=== PATIENT | female | born 1985 | race American Indian/Alaskan Native ===

== ENCOUNTER 2016-07-05 14:42 | Emergency (ER) | payer MEDICAID ==
[2016-07-05 15:28] VITALS: BP 135/77
--- NOTE | 2016-07-05 18:13 | Emergency Department Report ---
Entered by DIANA GREY, acting as scribe for ANEESH OVALLE PA. ED Fall HPI - General Chief Complaint: Fall Stated Complaint: FALL Time Seen by Provider: 07/05/16 17:00 Source: patient Mode of arrival: Ambulatory - History of Present Illness Initial Comments: 31 year old female presents to the ED for evaluation of left knee pain that began today. Patient reports she tripped over her real toy in backyard while running yesterday. She states she tripped forward then backward while attempting to maintain balance. She reports she felt twist in her left knee and landed on the ground on hands and knees. Patient states she was ambulatory with no difficulty or pain yesterday. Notes pain is worse to posterior aspect of left knee. She denies hitting her head, abdominal pain, chest pain, shortness of breath, back pain. Patient is currently and reports feeling movement today. She reports no vaginal bleeding or leaking of fluids. MD Complaint: fall -: days(s) (1 day ago (yesterday). Knee pain for 1 day (today).) Fall From: standing When Fall Occurred: 24 hours [employer] [facility] [employer] Fall Witnessed: yes, by family Place Fall Occurred: home Loss of Consciousness: none Prolonged Down Time?: no Symptoms Prior to Fall: none Location - Extremities: Left: Knee (Pain to anterior and posterior aspect.) Context: tripped/slipped Associated Symptoms: denies: headache, neck pain, numbness, weakness, chest paint, shortness of breath, abdominal pain, unable to walk, other (back pain, decreased or absent movements) - Related Data Home Medications Medication Instructions Recorded Confirmed Last Taken ALBUTEROL Inhaler [Proair] 2 puff IH QID PRN 07/24/13 08/04/13 Unknown Methyldopa [Aldomet] 500 mg PO BID 07/24/13 08/04/13 07/24/13 05:00 Vit#96/Ferrous Fum/FA 1 tab PO DAILY 07/24/13 08/04/13 08/03/13 [ Tablet] 1 Previous Rx's Medication Instructions Recorded Last Taken Type Ferrous Sulfate [Feosol 325 MG tab] 325 mg PO BID #60 tablet 08/05/13 Unknown Rx HYDROcodone/APAP 5-325 [[place] 1 each PO Q6HR PRN #30 tablet 08/05/13 Unknown Rx 5/325 mg] Ibuprofen [Motrin] 800 mg PO Q8H PRN #30 tablet 08/05/13 Unknown Rx Ypo574/Iron Fumarate/FA/Dss 1 each PO QDAY #30 tablet 08/05/13 Unknown Rx [ 19 Tablet] Acetaminophen [Acetaminophen 8 650 mg PO TID #40 tablet.er 07/05/16 Unknown Rx Hour] Allergies Allergy/AdvReac Type Severity Reaction Status Date / Time shellfish derived Allergy Anaphylaxis Verified 07/05/16 15:25 ED Review of Systems Comment: All other systems reviewed and negative Respiratory: denies: shortness of breath Cardiovascular: denies: chest pain Gastrointestinal: denies: abdominal pain Genitourinary: denies: other (decreased or absent movements) Musculoskeletal: other (left knee pain). denies: back pain (neck pain) Neurological: denies: headache, weakness, numbness, paresthesias, other (LOC) ED Past Medical Hx - Past Medical History Hx Hypertension: Yes (WITH ) Hx Heart Attack/AMI: No Hx Congestive Heart Failure: No Hx Diabetes: No Hx Deep Vein Thrombosis: No Hx Pulmonary Embolism: No Hx Liver Disease: No Hx Renal Disease: No Hx Sickle Cell Disease: No Hx Headaches / Migraines: Yes (occas) Hx Seizures: No Hx Asthma: Yes (last attack 5 yrs ago) Hx COPD: No Hx Tuberculosis: No Hx HIV: No - Surgical History Additional Surgical History: X 2 - Social History Smoking Status: Former Smoker Substance Use Type: None - Medications Home Medications: Home Medications Medication Instructions Recorded Confirmed Last Taken Type ALBUTEROL Inhaler [Proair] 2 puff IH QID PRN 07/24/13 08/04/13 Unknown History Methyldopa [Aldomet] 500 mg PO BID 07/24/13 08/04/13 07/24/13 05:00 History Vit#96/Ferrous Fum/FA 1 tab PO DAILY 07/24/13 08/04/13 08/03/13 History [ Tablet] 1 Ferrous Sulfate [Feosol 325 MG tab] 325 mg PO BID #60 tablet 08/05/13 Unknown Rx HYDROcodone/APAP 5-325 [[place] 1 each PO Q6HR PRN #30 tablet 08/05/13 Unknown Rx 5/325 mg] Ibuprofen [Motrin] 800 mg PO Q8H PRN #30 tablet 08/05/13 Unknown Rx Rbj675/Iron Fumarate/FA/Dss 1 each PO QDAY #30 tablet 08/05/13 Unknown Rx [ 19 Tablet] Acetaminophen [Acetaminophen 8 650 mg PO TID #40 tablet.er 07/05/16 Unknown Rx Hour] ED Physical Exam - General Limitations: No Limitations - Other Other exam information: GENERAL: Patient is alert and oriented x 3. No apparent distress, atraumatic. HEAD: Head is normocephalic and atraumatic. EYES: Extraocular movements are intact. Pupils are equal, round, and reactive to light and accommodation. NECK: Supple, full range of motion. No lymphadenopathy or thyromegaly. No midline vertebral tenderness. LUNGS: Symmetrical with respiration. No wheezing, rales or crackles, CTAB. HEART: Regular rate and rhythm with normal S1/S2 present. No murmurs, rubs, or gallops. ABDOMEN: Nontender to palpation on all quadrants. BACK: No paraspinal or midline vertebral tenderness. No CVA tenderness. EXTREMITIES/MUSCULOSKELETAL: No cyanosis, clubbing, rash, lesions or edema. Full range of motion with pain to left knee. No increased warmth to left knee. Left patella intact with no signs of deformity or shifting. UE/LE Pulses 2+ bilaterally. LE and UE 5+ strength bilaterally. SKIN: Warm and dry. No lesions, ulceration or induration present NEUROLOGIC: No focal deficit., Cranial nerves II - XII are grossly intact. No loss of sensation. No facial droop. PSYCHIATRIC: Mood is congruent with affect. ED Course Vital Signs 07/05/16 15:20 Temperature 98.3 F Pulse Rate 84 Respiratory 17 Rate Blood Pressure 135/77 O2 Sat by Pulse 100 Oximetry ED Medical Decision Making - Medical Decision Making 31-year-old female swelling always gestation presents for knee pain status post fall. Discussed the patient and take Tylenol as needed for pain. Patient is a alert and oriented 3 in no acute distress no wrist or distress. Discussed the patient follow up with STERILIZATION TECHNICIAN doctor. Discussed with patient at any time if she experiences vaginal bleeding or any complications of to return to the nearest ED. ED Disposition Clinical Impression: Knee pain, left Qualifiers: Chronicity: acute Qualified Code(s): M25.562 - Pain in left knee Fall Qualifiers: Encounter type: initial encounter Qualified Code(s): W19.XXXA - Unspecified fall, initial encounter Disposition: DISCHARGED TO HOME OR SELFCARE Is pt being admited?: No Does the pt Need Aspirin: No Condition: Stable Instructions: Arthralgia (ED) Additional Instructions: Elevate your legs. Rest your legs. Take Tylenol as discussed. Follow-up with the STERILIZATION TECHNICIAN. Prescriptions: Acetaminophen [Acetaminophen 8 Hour] 650 mg PO TID #40 tablet.er Referrals: PRIMARY CARE,MD [Primary Care Provider] - 3-5 Days Forms: Work/School Release Form(ED) Time of Disposition: 17:37 This documentation as recorded by the MATILDA panchal REBEKAH,accurately reflects the service I personally performed and the decisions made by ,ANEESH OVALLE PA.
== END 2016-07-05 17:55 | disposition home or self-care (01) ==
LOC: ED 14:42
DX: M25.562 Pain in left knee (principal); J45.909 Unspecified asthma, uncomplicated; Z91.013 Allergy to seafood; Z87.891 Personal history of nicotine dependence; W19.XXXA Unspecified fall, initial encounter; Y93.89 Activity, other specified; Y99.9 Unspecified external cause status; Y92.009 Unspecified place in unspecified non-institutional (private) residence as the place of occurrence of the external cause
CPT/HCPCS: 99282

== ENCOUNTER 2017-02-21 16:12 | Emergency (ER) | payer MEDICAID ==
[2017-02-21 17:14] VITALS: BP 138/76
[2017-02-21 18:02] LABS: Basophils % (Auto) 0.7 % (0.0-1.8); Eosinophils % (Auto) 3.6 % (0.0-4.3); Hematocrit 36.2 % (30.3-42.9); Hemoglobin 11.5 gm/dl (10.1-14.3); Mean Corpuscular HGB Conc 32 % (30-34); Mean Corpuscular Volume 80 fl (79-97); Platelet Count 299 K/mm3 (140-440); Red Blood Count 4.53 M/mm3 (3.65-5.03); Red Cell Distribution Width 17.7 % (13.2-15.2); White Blood Count 6.9 K/mm3 (4.5-11.0)
[2017-02-21 18:04] LABS: Mean Corpuscular Hemoglobin 25 pg (28-32)
[2017-02-21 18:27] LABS: Alanine Aminotransferase 14 units/L (7-56); Albumin 3.7 g/dL (3.9-5); Albumin/Globulin Ratio 1.3 %; Alkaline Phosphatase 73 units/L (35-129); Anion Gap 18 mmol/L; BUN/Creatinine Ratio 10; Bilirubin,Total < 0.20 mg/dL (0.1-1.2); Blood Urea Nitrogen 7 mg/dL (7-17); Calcium 9.1 mg/dL (8.4-10.2); Carbon Dioxide 24 mmol/L (22-30); Chloride 103.3 mmol/L (98-107); Glucose 79 mg/dL (65-100); Lipase 20 units/L (13-60); Sodium 141 mmol/L (137-145); Total Protein 6.6 g/dL (6.3-8.2)
[2017-02-22 00:33] LABS: Bilirubin,Urine Negative (Negative); Blood,Urine Negative (Negative); Ketones,Urine Negative (Negative); Leukocyte Esterase,Urine Negative (Negative); Nitrite,Urine Negative (Negative); Protein,Urine <15 mg/dL mg/dL (Negative); Urobilinogen,Urine < 2.0 mg/dL (<2.0)
[2017-02-22 00:42] LABS: Bacteria,Urine 2+ /HPF (Negative)
== END 2017-02-21 23:39 | disposition left against medical advice (07) ==
LOC: ED 16:12
DX: R10.9 Unspecified abdominal pain (principal); Z53.21 Procedure and treatment not carried out due to patient leaving prior to being seen by health care provider
CPT/HCPCS: 36415; 80053; 81001; 81025; 83690; 85025

== ENCOUNTER 2017-06-07 07:38 | Emergency (ER) | payer SELFPAY ==
[2017-06-07] MEDS ORDERED: FIORICET PO ONE (08:46)
[2017-06-07] MEDS ORDERED: ZOFRAN IV ONE (08:46)
[2017-06-07] MEDS ORDERED: SUBLIMAZE IV ONE (08:46)
--- NOTE | 2017-06-07 08:57 | Emergency Department Report ---
HPI - General Chief Complaint: Headache Time Seen by Provider: 06/07/17 08:37 - HPI HPI: Room 26 The patient is a 32-year-old female presenting with chief complaint of headache. The patient states for the past 3 days she has had a frontal headache that has been constant associated with nausea but no vomiting. Patient denies any previous trauma or fever. States she's also been dizzy. The patient states this morning while talking to her mother the headache worsened and she reportedly lost consciousness. Patient was brought in by EMS. The patient currently gives her headache is score of 10/10. The patient states she has had frequent headaches since she was a child and saw neurologist once at age 12. The patient states she is unaware of what diagnosis she was given. Location: Head Duration: 3 days Quality:, Tightness Severity: 10/10 Modifying factors: [see above] Context: [see above] Mode of transportation: [not driving] ED Past Medical Hx - Past Medical History Hx Hypertension: Yes (WITH ) Hx Headaches / Migraines: Yes (occas) Hx Asthma: Yes (last attack 5 yrs ago) Additional medical history: Gallstones - Surgical History Additional Surgical History: X 3, Tubaligation - Family History Family history: no significant - Social History Smoking Status: Current Every Day Smoker (1/7 Pack per day) Substance Use Type: Marijuana - Medications Home Medications: Home Medications Medication Instructions Recorded Confirmed Last Taken Type ALBUTEROL Inhaler [Proair] 2 puff IH QID PRN 07/24/13 08/04/13 Unknown History Methyldopa [Aldomet] 500 mg PO BID 07/24/13 08/04/13 07/24/13 05:00 History Vits96/Iron Fum/Folic 1 tab PO DAILY 07/24/13 08/04/13 08/03/13 History [ Tablet] 1 Ferrous Sulfate [Feosol 325 MG tab] 325 mg PO BID #60 tablet 08/05/13 Unknown Rx HYDROcodone/APAP 5-325 [[place] 1 each PO Q6HR PRN #30 tablet 08/05/13 Unknown Rx 5/325 mg] Ibuprofen [Motrin] 800 mg PO Q8H PRN #30 tablet 08/05/13 Unknown Rx Ebl237/Iron Fum/Folic/Docusate 1 each PO QDAY #30 tablet 08/05/13 Unknown Rx [ 19 Tablet] Acetaminophen [Acetaminophen 8 650 mg PO TID #40 tablet.er 07/05/16 Unknown Rx Hour] Butalbit/Acetamin/Caff/Codeine 1 each PO Q8H PRN #20 capsule 06/07/17 Unknown Rx [Zazwul-Gqljuveqgwd-Cswx-Codein] ED Review of Systems ROS: Stated complaint: HEADACHE Other details as noted in HPI Constitutional: denies: fever Gastrointestinal: nausea. denies: vomiting Neurological: headache Physical Exam - Physical Exam Vital Signs: Vital Signs 06/07/17 06/07/17 06/07/17 07:42 08:24 08:28 Temperature 97.9 F 97.9 F Pulse Rate 75 60 Respiratory 18 19 19 Rate Blood Pressure 143/83 Blood Pressure 110/55 [Left] O2 Sat by Pulse 96 99 99 Oximetry Physical Exam: GENERAL: The patient is well-developed well-nourished female sitting in room appearing to be in mild discomfort. [] HEENT: Normocephalic. Atraumatic. Extraocular motions are intact. Patient has moist mucous membranes. NECK: Supple. No meningitic signs are noted. There is no nuchal rigidity CHEST/LUNGS: Clear to auscultation. There is no respiratory distress noted. HEART/CARDIOVASCULAR: Regular. There is no tachycardia. There is no gallop rub or murmur. ABDOMEN: Abdomen is soft, nontender. Patient has normal bowel sounds. There is no abdominal distention. SKIN: There is no rash. There is no edema. There is no diaphoresis. NEURO: The patient is awake, alert, and oriented. The patient is cooperative. The patient has no focal neurologic deficits. The patient has normal speech. Cranial nerves II through XII grossly intact, no drift, rides supervisor equal bilaterally MUSCULOSKELETAL: There is no evidence of acute injury. ED Course Vital Signs 06/07/17 06/07/17 06/07/17 07:42 08:24 08:28 Temperature 97.9 F 97.9 F Pulse Rate 75 60 Respiratory 18 19 Rate Blood Pressure 143/83 Blood Pressure 110/55 [Left] O2 Sat by Pulse 96 99 99 Oximetry ED Medical Decision Making - Lab Data Result diagrams: 06/07/17 09:03 06/07/17 09:03 Laboratory Tests 06/07/17 06/07/17 09:03 09:03 WBC 5.2 RBC 4.50 Hgb 11.3 Hct 35.8 MCV 80 MCH 25 L MCHC 32 RDW 18.2 H Plt Count 245 Lymph % (Auto) 35.1 H Kimball % (Auto) 9.7 H Eos % (Auto) 4.1 Baso % (Auto) 0.8 Lymph # 1.8 Kimball # 0.5 Eos # 0.2 Baso # 0.0 Seg Neutrophils % 50.3 Seg Neutrophils # 2.6 Sodium 140 Potassium 4.6 Chloride 105.6 Carbon Dioxide 23 Anion Gap 17 BUN 7 Creatinine 0.7 Estimated GFR > 60 BUN/Creatinine Ratio 10 Glucose 97 Calcium 8.5 Total Creatine Kinase 185 H CK-MB (CK-2) 1.0 CK-MB (CK-2) Rel Index 0.5 Troponin T < 0.010 - EKG Data -: EKG Interpreted by Me EKG shows normal: sinus rhythm Rate: normal - EKG Data When compared to previous EKG there are: previous EKG unavailable Interpretation: nonspecific ST-T wave bobo (T-wave inversion in lead 3) - Radiology Data Radiology results: report reviewed (CT head), image reviewed (CT head) CT HEAD WITHOUT CONTRAST INDICATION: Headache, syncope. COMPARISON: None similar. FINDINGS: Noncontrast head CT demonstrates normal ventricles and sulci without acute or recent infarct, hemorrhage, mass effect or midline shift. No abnormal extra-axial fluid collections. Posterior fossa structures and basilar cisterns appear within normal limits. Symmetric eye globes. Mild left and minimal right maxillary sinus mucosal thickening inferiorly. Mild left sphenoid sinus opacification anteriorly as well. Slight ethmoid sinusitis possible. Clear remainder imaged paranasal sinuses and mastoid air cells. Intact calvarium. Normal overlying scalp soft tissues. CONCLUSION: No acute intracranial CT abnormality with sinusitis noted, as described. Thank you for the opportunity to participate in this patient's care. Transcribed By: RS Dictated By: SHIRA RAMIRES MD Electronically Authenticated By: SHIRA RAMIRES MD Signed Date/Time: 06/07/17936 DD/ 3 TD/TT: 06/07/17936 - Differential Diagnosis migraines, vasovagal syncope, ICH Critical care attestation.: If time is entered above; I have spent that time in minutes in the direct care of this critically ill patient, excluding procedure time. ED Disposition Clinical Impression: Headache Disposition: DC-01 TO HOME OR SELFCARE Is pt being admited?: No Does the pt Need Aspirin: No Condition: Stable Instructions: Acute Headache (ED), Migraine Headache (ED) Additional Instructions: Return to the emergency department immediately should you develop worsening symptoms, fever, inability to tolerate food or liquid or any other concerns. Prescriptions: Butalbit/Acetamin/Caff/Codeine [Ltwzhm-Hquktnocazx-Viel-Codein] 1 each PO Q8H PRN #20 capsule PRN Reason: Headache Referrals: PRIMARY CARE, [Primary Care Provider] - 3-5 Days MACK TOMLIN MD [Staff Physician] - [facility] (Dr. Tomlin is a neurologist. Please follow-up with him for further evaluation) Time of Disposition: 10:39
[2017-06-07] MEDS ORDERED: SUBLIMAZE IV NR (09:00)
--- NOTE | 2017-06-07 09:41 | Cat Scan Report ---
CT HEAD WITHOUT CONTRAST INDICATION: Headache, syncope. COMPARISON: None similar. FINDINGS: Noncontrast head CT demonstrates normal ventricles and sulci without acute or recent infarct, hemorrhage, mass effect or midline shift. No abnormal extra-axial fluid collections. Posterior fossa structures and basilar cisterns appear within normal limits. Symmetric eye globes. Mild left and minimal right maxillary sinus mucosal thickening inferiorly. Mild left sphenoid sinus opacification anteriorly as well. Slight ethmoid sinusitis possible. Clear remainder imaged paranasal sinuses and mastoid air cells. Intact calvarium. Normal overlying scalp soft tissues. CONCLUSION: No acute intracranial CT abnormality with sinusitis noted, as described. Thank you for the opportunity to participate in this patient's care.
[2017-06-07 09:50] LABS: BUN/Creatinine Ratio 10; Blood Urea Nitrogen 7 mg/dL (7-17); Calcium 8.5 mg/dL (8.4-10.2); Hemolysis Index 109
[2017-06-07 09:51] LABS: Basophils % (Auto) 0.8 % (0.0-1.8); Eosinophils # (Auto) 0.2 K/mm3 (0.0-0.4); Eosinophils % (Auto) 4.1 % (0.0-4.3); Hematocrit 35.8 % (30.3-42.9); Hemoglobin 11.3 gm/dl (10.1-14.3); Lymphocytes # (Auto) 1.8 K/mm3 (1.2-5.4); Lymphocytes % (Auto) 35.1 % (13.4-35.0); Mean Corpuscular HGB Conc 32 % (30-34); Mean Corpuscular Volume 80 fl (79-97); Monocytes # (Auto) 0.5 K/mm3 (0.0-0.8); Monocytes % (Auto) 9.7 % (0.0-7.3); Platelet Count 245 K/mm3 (140-440); Red Cell Distribution Width 18.2 % (13.2-15.2)
[2017-06-07 09:52] LABS: Mean Corpuscular Hemoglobin 25 pg (28-32)
[2017-06-07 10:33] VITALS: BP 109/65
== END 2017-06-07 10:58 | disposition home or self-care (01) ==
LOC: ED 07:38
DX: G43.909 Migraine, unspecified, not intractable, without status migrainosus (principal); F17.200 Nicotine dependence, unspecified, uncomplicated; F12.10 Cannabis abuse, uncomplicated
CPT/HCPCS: 36415; 70450; 80048; 82550; 82553; 84484; 85025; 93005; 93010; 96374; 96375; 99285; J2405; J3010

== ENCOUNTER 2017-08-03 09:10 | Emergency (ER) | payer OTHER ==
[2017-08-03 09:21] VITALS: BP 162/79
--- NOTE | 2017-08-03 09:59 | Emergency Department Report ---
ED Extremity Problem HPI - General Chief complaint: Extremity Injury, Lower Stated complaint: KNEE INJURY Time Seen by Provider: 08/03/17 09:50 Source: patient Mode of arrival: Wheelchair Limitations: Physical Limitation - History of Present Illness Complaint: extremity pain, other (pt reports she ran after baby, who is about 1 year old, and then got knee pain, no leg swelling or cp or sob or hx of dvt. pt states " this is the third time my same knee got hurt" pt reports getting out of a car whikle pregennt 2 years ago, then last year and now this am. ) -: Sudden, This morning Location: left, knee Severity scale (0 -10): 6 Quality: aching Consistency: constant Improves with: rest Worsens with: exertion Associated Symptoms: denies other symptoms. denies: chest pain, shortness of breath, fever, myalgias, arthralgias - Related Data Home Medications Medication Instructions Recorded Confirmed Last Taken ALBUTEROL Inhaler [Proair] 2 puff IH QID PRN 07/24/13 08/04/13 Unknown Methyldopa [Aldomet] 500 mg PO BID 07/24/13 08/04/13 07/24/13 05:00 Vits96/Iron Fum/Folic 1 tab PO DAILY 07/24/13 08/04/13 08/03/13 [ Tablet] 1 Previous Rx's Medication Instructions Recorded Last Taken Type Ferrous Sulfate [Feosol 325 MG tab] 325 mg PO BID #60 tablet 08/05/13 Unknown Rx Ibuprofen [Motrin] 800 mg PO Q8H PRN #30 tablet 08/05/13 Unknown Rx Sae379/Iron Fum/Folic/Docusate 1 each PO QDAY #30 tablet 08/05/13 Unknown Rx [ 19 Tablet] Acetaminophen [Acetaminophen 8 650 mg PO TID #40 tablet.er 07/05/16 Unknown Rx Hour] Butalbit/Acetamin/Caff/Codeine 1 each PO Q8H PRN #20 capsule 06/07/17 Unknown Rx [Xnftih-Odksuxeqtfc-Asgz-Codein] Allergies Allergy/AdvReac Type Severity Reaction Status Date / Time shellfish derived Allergy Anaphylaxis Verified 08/03/17 09:17 ED Review of Systems ROS: Stated complaint: KNEE INJURY Other details as noted in HPI Comment: All other systems reviewed and negative Constitutional: denies: chills, fever Eyes: denies: eye pain, eye discharge, vision change ENT: denies: ear pain, throat pain Respiratory: denies: cough, shortness of breath, wheezing Cardiovascular: denies: chest pain, palpitations Endocrine: no symptoms reported Gastrointestinal: denies: abdominal pain, nausea, diarrhea Genitourinary: denies: urgency, dysuria, discharge Musculoskeletal: as per HPI (knee hurts after chasing baby). denies: back pain , joint swelling, arthralgia Skin: denies: rash, lesions Neurological: denies: headache, weakness, paresthesias Psychiatric: denies: anxiety, depression Hematological/Lymphatic: denies: easy bleeding, easy bruising ED Past Medical Hx - Past Medical History Hx Hypertension: Yes (WITH ) Hx Heart Attack/AMI: No Hx Congestive Heart Failure: No Hx Diabetes: No Hx Deep Vein Thrombosis: No Hx Pulmonary Embolism: No Hx Liver Disease: No Hx Renal Disease: No Hx Sickle Cell Disease: No Hx Headaches / Migraines: Yes (occas) Hx Seizures: No Hx Asthma: Yes (last attack 5 yrs ago) Hx COPD: No Hx Tuberculosis: No Hx HIV: No Additional medical history: Gallstones - Surgical History Additional Surgical History: X 3, Tubaligation - Social History Smoking Status: Current Every Day Smoker Substance Use Type: None - Medications Home Medications: Home Medications Medication Instructions Recorded Confirmed Last Taken Type ALBUTEROL Inhaler [Proair] 2 puff IH QID PRN 07/24/13 08/04/13 Unknown History Methyldopa [Aldomet] 500 mg PO BID 07/24/13 08/04/13 07/24/13 05:00 History Vits96/Iron Fum/Folic 1 tab PO DAILY 07/24/13 08/04/13 08/03/13 History [ Tablet] 1 Ferrous Sulfate [Feosol 325 MG tab] 325 mg PO BID #60 tablet 08/05/13 Unknown Rx Ibuprofen [Motrin] 800 mg PO Q8H PRN #30 tablet 08/05/13 Unknown Rx Neg909/Iron Fum/Folic/Docusate 1 each PO QDAY #30 tablet 08/05/13 Unknown Rx [ 19 Tablet] Acetaminophen [Acetaminophen 8 650 mg PO TID #40 tablet.er 07/05/16 Unknown Rx Hour] Butalbit/Acetamin/Caff/Codeine 1 each PO Q8H PRN #20 capsule 06/07/17 Unknown Rx [Pvxoyi-Loucqjwczss-Jlzr-Codein] ED Physical Exam - General Limitations: Physical Limitation General appearance: alert, in no apparent distress - Head Head exam: Present: atraumatic, normocephalic - Eye Eye exam: Present: normal appearance - ENT ENT exam: Present: mucous membranes moist - Neck Neck exam: Present: normal inspection - Respiratory Respiratory exam: Present: normal lung sounds bilaterally. Absent: respiratory distress - Cardiovascular Cardiovascular Exam: Present: regular rate, normal rhythm. Absent: systolic murmur, diastolic murmur, rubs, gallop - GI/Abdominal GI/Abdominal exam: Present: soft, normal bowel sounds - Extremities Exam Extremities exam: Present: normal inspection, normal capillary refill, other ( no homans sign, no swelling or signs of trauma, no lac or abrassion). Absent: calf tenderness - Back Exam Back exam: Present: normal inspection - Neurological Exam Neurological exam: Present: alert, oriented X3, other (all senosry dermtomes intact, normal motor, normal reflexes,) - Psychiatric Psychiatric exam: Present: normal affect, normal mood - Skin Skin exam: Present: warm, dry, intact, normal color. Absent: rash ED Course Vital Signs 08/03/17 09:17 Temperature 98.4 F Pulse Rate 91 H Respiratory 20 Rate Blood Pressure 162/79 O2 Sat by Pulse 99 Oximetry ED Medical Decision Making - Radiology Data Radiology results: report reviewed (no fractures) Critical Care Time: No Critical care attestation.: If time is entered above; I have spent that time in minutes in the direct care of this critically ill patient, excluding procedure time. ED Disposition Clinical Impression: Knee pain Qualifiers: Chronicity: acute Laterality: left Qualified Code(s): M25.562 - Pain in left knee Disposition: DC-01 TO HOME OR SELFCARE Is pt being admited?: No Does the pt Need Aspirin: No Condition: Stable Instructions: Knee Pain (ED), Arthralgia (ED), Knee Exercises (GEN) Additional Instructions: Our radiologist has reported that you don't have any fractures. Dont walk on your knee, dont bear weight on your knee, and arrange a prompt visit with an orthopedic knee specialist. I have referred you to our orthopedist precision instrument maker and repairer. Referrals: PRIMARY CARE, [Primary Care Provider] - 3-5 Days JUNIOR UREÑA MD [Staff Physician] - 3-5 Days Time of Disposition: 11:11
[2017-08-03] MEDS ORDERED: ZOFRAN ODT PO ONE (10:00)
[2017-08-03] MEDS ORDERED: PERCOCET 5/325 PO ONE (10:01)
--- NOTE | 2017-08-03 11:01 | XRay Report ---
Left knee 2 views: History: Knee pain. Trauma. Findings: No fracture or dislocation. Medial and lateral compartment appears normal. Small spot is identified the posterior superior and posterior inferior patella. Suspected minimal fluid in the suprapatellar bursa. Impression: No fracture. Findings as detailed above
== END 2017-08-03 11:49 | disposition home or self-care (01) ==
LOC: ED 09:10
DX: M25.562 Pain in left knee (principal); I10 Essential (primary) hypertension; G43.909 Migraine, unspecified, not intractable, without status migrainosus; F17.200 Nicotine dependence, unspecified, uncomplicated; Z91.013 Allergy to seafood
CPT/HCPCS: 99283; Q0162

== ENCOUNTER 2019-06-19 15:17 | Emergency (ER) | payer MEDICAID ==
[2019-06-19 16:51] VITALS: BP 131/86
[2019-06-19] MEDS ORDERED: BUTALB/ACETAMINOPHEN/CAFFEINE TAB PO ONE (20:04)
[2019-06-19] MEDS ORDERED: diphenhydrAMINE 25 MG CAP PO ONE (20:04)
[2019-06-19] MEDS ORDERED: ONDANSETRON 4 MG ODT TAB PO ONE (20:04)
[2019-06-19] MEDS ORDERED: KETOROLAC 30 MG/1 ML INJ IM ONE (20:04)
--- NOTE | 2019-06-19 21:49 | Emergency Department Report ---
ED General Adult HPI - General Chief complaint: Upper Respiratory Infection Stated complaint: CONSTANT HEADACHES/SORE THROAT Source: patient Mode of arrival: Ambulatory Limitations: No Limitations - History of Present Illness Initial comments: Patient is a 34-year-old female with a history of chronic headaches who presented to the ED with persistent frontal sinus headache with sore throat for the last 4 days. Patient states that she has been taking ydwq-[id number] medication but have worked before but this time never help relieve her headache. Patient denies dizziness, syncope, change in vision, nausea, vomiting, chest pain, shortness of breath, fever, chills, nasal and sinus congestion, sore throat or abdominal pain. MD Complaint: Headache; sore throat -: Sudden, days(s) (4) Location: head, mouth Radiation: non-radiation Severity scale (0 -10): 7 Quality: aching, sharp Consistency: constant Improves with: none Worsens with: none Associated Symptoms: denies other symptoms, headaches, loss of appetite, malaise. denies: confusion, chest pain, cough, diaphoresis, fever/chills, nausea/vomiting, rash, seizure, shortness of breath, syncope, weakness - Related Data Home Medications Medication Instructions Recorded Confirmed Last Taken Albuterol INH(or & Nicu Only) 2 puff IH QID PRN 07/24/13 08/04/13 Unknown [Proair] Methyldopa [Aldomet] 500 mg PO BID 07/24/13 08/04/13 07/24/13 05:00 Vits96/Iron Fum/Folic 1 tab PO DAILY 07/24/13 08/04/13 08/03/13 [ Tablet] 1 Previous Rx's Medication Instructions Recorded Last Taken Type Ferrous Sulfate [Feosol 325 MG tab] 325 mg PO BID #60 tablet 08/05/13 Unknown Rx Ibuprofen [Motrin] 800 mg PO Q8H PRN #30 tablet 08/05/13 Unknown Rx Amy844/Iron Fum/Folic/Docusate 1 each PO QDAY #30 tablet 08/05/13 Unknown Rx [ 19 Tablet] Acetaminophen [Acetaminophen 8 650 mg PO TID #40 tablet.er 07/05/16 Unknown Rx Hour] Butalbit/Acetamin/Caff/Codeine 1 each PO Q8H PRN #20 capsule 06/07/17 Unknown Rx [Usxfsn-Xkvoiiniuos-Xrai-Codein] Amoxicillin [Trimox CAP] 500 mg PO Q8H #30 capsule 06/19/19 Unknown Rx Butalb/Acetamin/Caff 50-325-40 1 - 2 tab PO Q6HR PRN #15 tab 06/19/19 Unknown Rx [Fioricet 50-325-40] Cetirizine HCl [Zyrtec 10mg tab] 10 mg PO DAILY #30 tablet 06/19/19 Unknown Rx Ketorolac [Toradol] 10 mg PO Q8H PRN #20 tablet 06/19/19 Unknown Rx Allergies Allergy/AdvReac Type Severity Reaction Status Date / Time shellfish derived Allergy Anaphylaxis Verified 08/03/17 09:17 ED Review of Systems ROS: Stated complaint: CONSTANT HEADACHES/SORE THROAT Other details as noted in HPI Constitutional: denies: chills, fever Eyes: denies: eye pain, eye discharge, vision change ENT: throat pain, congestion, other (frontal headache). denies: ear pain Respiratory: denies: cough, shortness of breath, wheezing Cardiovascular: denies: chest pain, palpitations Endocrine: no symptoms reported Gastrointestinal: denies: abdominal pain, nausea, diarrhea Genitourinary: denies: urgency, dysuria, discharge Musculoskeletal: denies: back pain, joint swelling, arthralgia Skin: denies: rash, lesions Neurological: headache (frontal ). denies: weakness, paresthesias Psychiatric: denies: anxiety, depression Hematological/Lymphatic: denies: easy bleeding, easy bruising ED Past Medical Hx - Past Medical History Hx Hypertension: Yes (WITH ) Hx Heart Attack/AMI: No Hx Congestive Heart Failure: No Hx Diabetes: No Hx Deep Vein Thrombosis: No Hx Pulmonary Embolism: No Hx Liver Disease: No Hx Renal Disease: No Hx Sickle Cell Disease: No Hx Headaches / Migraines: Yes (occas) Hx Seizures: No Hx Asthma: Yes (last attack 5 yrs ago) Hx COPD: No Hx Tuberculosis: No Hx HIV: No Additional medical history: Gallstones - Surgical History Additional Surgical History: X 3, Tubaligation - Social History Smoking Status: Current Every Day Smoker Substance Use Type: Marijuana - Medications Home Medications: Home Medications Medication Instructions Recorded Confirmed Last Taken Type Albuterol INH(or & Nicu Only) 2 puff IH QID PRN 07/24/13 08/04/13 Unknown History [Proair] Methyldopa [Aldomet] 500 mg PO BID 07/24/13 08/04/13 07/24/13 05:00 History Vits96/Iron Fum/Folic 1 tab PO DAILY 07/24/13 08/04/13 08/03/13 History [ Tablet] 1 Ferrous Sulfate [Feosol 325 MG tab] 325 mg PO BID #60 tablet 08/05/13 Unknown Rx Ibuprofen [Motrin] 800 mg PO Q8H PRN #30 tablet 08/05/13 Unknown Rx Blg537/Iron Fum/Folic/Docusate 1 each PO QDAY #30 tablet 08/05/13 Unknown Rx [ 19 Tablet] Acetaminophen [Acetaminophen 8 650 mg PO TID #40 tablet.er 07/05/16 Unknown Rx Hour] Butalbit/Acetamin/Caff/Codeine 1 each PO Q8H PRN #20 capsule 06/07/17 Unknown Rx [Evkovb-Nkligveywhw-Olpv-Codein] Amoxicillin [Trimox CAP] 500 mg PO Q8H #30 capsule 06/19/19 Unknown Rx Butalb/Acetamin/Caff 50-325-40 1 - 2 tab PO Q6HR PRN #15 tab 06/19/19 Unknown Rx [Fioricet 50-325-40] Cetirizine HCl [Zyrtec 10mg tab] 10 mg PO DAILY #30 tablet 06/19/19 Unknown Rx Ketorolac [Toradol] 10 mg PO Q8H PRN #20 tablet 06/19/19 Unknown Rx ED Physical Exam - General Limitations: No Limitations General appearance: alert, in no apparent distress - Head Head exam: Present: atraumatic, normocephalic, normal inspection - Eye Eye exam: Present: normal appearance, PERRL, EOMI Pupils: Present: normal accommodation - ENT ENT exam: Present: normal orophraynx, mucous membranes moist, TM's normal bilaterally, normal external ear exam, other (Palpable frontal sinus tenderness) - Neck Neck exam: Present: normal inspection, full ROM - Respiratory Respiratory exam: Present: normal lung sounds bilaterally. Absent: respiratory distress, wheezes, rhonchi, accessory muscle use, prolonged expiratory - Cardiovascular Cardiovascular Exam: Present: normal rhythm, tachycardia, normal heart sounds. Absent: systolic murmur, diastolic murmur, rubs, gallop - GI/Abdominal GI/Abdominal exam: Present: soft, normal bowel sounds. Absent: tenderness, guarding, rebound, hyperactive bowel sounds, hypoactive bowel sounds - Extremities Exam Extremities exam: Present: normal inspection, full ROM, normal capillary refill - Back Exam Back exam: Present: normal inspection, full ROM. Absent: tenderness, CVA tenderness (R), CVA tenderness (L), muscle spasm, paraspinal tenderness, vertebral tenderness - Neurological Exam Neurological exam: Present: alert, oriented X3, CN II-XII intact, normal gait, reflexes normal - Psychiatric Psychiatric exam: Present: normal affect, normal mood - Skin Skin exam: Present: warm, dry, intact, normal color. Absent: rash ED Course Vital Signs 06/19/19 16:48 Temperature 98.3 F Pulse Rate 102 H Blood Pressure 131/86 ED Medical Decision Making - Medical Decision Making This is a 34-year-old female with a history of chronic headaches who presented to the ED with persistent frontal sinus headache with sore throat for the last 4 days. Patient states that she has been taking bwbx-qax-qmldcht medication but have worked before but this time never help relieve her headache. Patient denies dizziness, syncope, change in vision, nausea, vomiting, chest pain, shortness of breath, fever, chills, nasal and sinus congestion, sore throat or abdominal pain. In the ED, patient is alert and oriented x3 and is not in distress. Patient was treated in the ED with pain medications Fioricet and Toradol as well as Benadryl. On reevaluation, patient's headache resolved with treatment. Patient was discharged home on medications and advised to follow-up with her primary care physician in 7 to 10 days for reevaluation or return to the ED immediately if symptoms get worse. - Differential Diagnosis Sinusitis; Sinus headache; Pharyngitis Critical care attestation.: If time is entered above; I have spent that time in minutes in the direct care of this critically ill patient, excluding procedure time. ED Disposition Clinical Impression: Sinus headache Acute pharyngitis Qualifiers: Pharyngitis/tonsillitis etiology: other specified organisms Qualified Code(s): J02.8 - Acute pharyngitis due to other specified organisms Acute frontal sinusitis Qualifiers: Recurrence: non-recurrent Qualified Code(s): J01.10 - Acute frontal sinusitis, unspecified Disposition: DC- TO HOME OR SELFCARE Is pt being admited?: No Does the pt Need Aspirin: No Condition: Stable Instructions: Pharyngitis (ED), Sinusitis (ED), Acute Headache (ED) Additional Instructions: Take medication with food, drink plenty fluids and follow-up with your primary care physician in 5 to 7 days for reevaluation. Return to the ED immediately if symptoms get worse. Prescriptions: Butalb/Acetamin/Caff 50-325-40 [Fioricet 50-325-40] 1 - 2 tab PO Q6HR PRN #15 tab PRN Reason: Headache Ketorolac [Toradol] 10 mg PO Q8H PRN #20 tablet PRN Reason: Pain Amoxicillin [Trimox CAP] 500 mg PO Q8H #30 capsule Cetirizine HCl [Zyrtec 10mg tab] 10 mg PO DAILY #30 tablet Referrals: [facility] [Outside] - 3-5 Days Forms: Work/School Release Form(ED) Time of Disposition: 21:46 Print Language: GERMAN
== END 2019-06-19 21:55 | disposition home or self-care (01) ==
LOC: ED 15:17
DX: J02.9 Acute pharyngitis, unspecified (principal); J01.10 Acute frontal sinusitis, unspecified; I10 Essential (primary) hypertension; G43.909 Migraine, unspecified, not intractable, without status migrainosus; J45.909 Unspecified asthma, uncomplicated; K80.80 Other cholelithiasis without obstruction; F17.200 Nicotine dependence, unspecified, uncomplicated; F12.10 Cannabis abuse, uncomplicated; Z98.890 Other specified postprocedural states; Z98.51 Tubal ligation status; Z79.1 Long term (current) use of non-steroidal anti-inflammatories (NSAID); Z79.899 Other long term (current) drug therapy
CPT/HCPCS: 96372; 99282; J1885; Q0162

== ENCOUNTER 2020-02-18 10:21 | Emergency (ER) | payer MEDICAID ==
[2020-02-18 10:43] VITALS: BP 144/88
[2020-02-18 13:15] LABS: HCG Qualitative,Urine Negative (Negative)
[2020-02-18 13:21] LABS: Bilirubin,Urine NEG (Negative); Blood,Urine SM (Negative); Color,Urine Yellow (Yellow); Protein,Urine <15 mg/dL mg/dL (Negative); Urobilinogen,Urine < 2.0 mg/dL (<2.0)
[2020-02-18 13:27] LABS: Bacteria,Urine 1+ /HPF (Negative); Mucus,Urine FEW /HPF
[2020-02-18] MEDS ORDERED: KETOROLAC 60 MG/2 ML INJ IM ONE (14:41)
--- NOTE | 2020-02-18 16:20 | Emergency Department Report ---
ED Female HPI - General Chief complaint: Abdominal Pain Stated complaint: ABD PAIN, HEADACHE Time Seen by Provider: 02/18/20 11:59 Source: patient Mode of arrival: Ambulatory Limitations: No Limitations - History of Present Illness Initial comments: Patient is a 35-year-old female who presents emergency room with complaints of no menstrual cycle since November. She states that she thought she may be but reports that she took at home test which she states were negative. She states that she has been having pelvic pain for a few weeks. She states she had a tubal ligation in 2016. She states that she has not seen a PSYCHOMETRIST in 3 years. She states that she typically has regular menstrual cycles. She is not any control. She denies any vomiting, diarrhea, dysuria, urinary frequency, vaginal discharge, vaginal itching or burning. She denies any past medical history. No allergies to medications. - Related Data Home Medications Medication Instructions Recorded Confirmed Last Taken Albuterol Mdi (or & Nicu Only) 2 puff IH QID PRN 07/24/13 08/04/13 Unknown [Proair] Methyldopa (Nf) [Aldomet] 500 mg PO BID 07/24/13 08/04/13 07/24/13 05:00 Vits96/Iron Fum/Folic 1 tab PO DAILY 07/24/13 08/04/13 08/03/13 [ Tablet] 1 Previous Rx's Medication Instructions Recorded Last Taken Type Ferrous Sulfate [Feosol 325 MG tab] 325 mg PO BID #60 tablet 08/05/13 Unknown Rx Ibuprofen [Motrin] 800 mg PO Q8H PRN #30 tablet 08/05/13 Unknown Rx Rtn565/Iron Fum/Folic/Docusate 1 each PO QDAY #30 tablet 08/05/13 Unknown Rx [ 19 Tablet] Acetaminophen [Acetaminophen 8 650 mg PO TID #40 tablet.er 07/05/16 Unknown Rx Hour] Butalbit/Acetamin/Caff/Codeine 1 each PO Q8H PRN #20 capsule 06/07/17 Unknown Rx [Vrotyi-Mzzarwfljgy-Lfmm-Codein] Amoxicillin [Trimox CAP] 500 mg PO Q8H #30 capsule 06/19/19 Unknown Rx Butalb/Acetamin/Caff 50-325-40 1 - 2 tab PO Q6HR PRN #15 tab 06/19/19 Unknown Rx [Fioricet 50-325-40] Cetirizine HCl [Zyrtec 10mg tab] 10 mg PO DAILY #30 tablet 06/19/19 Unknown Rx Ketorolac [Toradol] 10 mg PO Q8H PRN #20 tablet 06/19/19 Unknown Rx Allergies Allergy/AdvReac Type Severity Reaction Status Date / Time shellfish derived Allergy Anaphylaxis Verified 08/03/17 09:17 ED Review of Systems ROS: Stated complaint: ABD PAIN, HEADACHE Other details as noted in HPI Comment: All other systems reviewed and negative ED Past Medical Hx - Past Medical History Previous Medical History?: Yes Hx Hypertension: Yes (WITH ) Hx Heart Attack/AMI: No Hx Congestive Heart Failure: No Hx Diabetes: No Hx Deep Vein Thrombosis: No Hx Pulmonary Embolism: No Hx Liver Disease: No Hx Renal Disease: No Hx Sickle Cell Disease: No Hx Headaches / Migraines: Yes (occas) Hx Seizures: No Hx Asthma: Yes (last attack 5 yrs ago) Hx COPD: No Hx Tuberculosis: No Hx HIV: No Additional medical history: Gallstones - Surgical History Past Surgical History?: Yes Additional Surgical History: X 3, Tubaligation - Social History Smoking Status: Current Every Day Smoker Substance Use Type: Marijuana - Medications Home Medications: Home Medications Medication Instructions Recorded Confirmed Last Taken Type Albuterol Mdi (or & Nicu Only) 2 puff IH QID PRN 07/24/13 08/04/13 Unknown History [Proair] Methyldopa (Nf) [Aldomet] 500 mg PO BID 07/24/13 08/04/13 07/24/13 05:00 History Vits96/Iron Fum/Folic 1 tab PO DAILY 07/24/13 08/04/13 08/03/13 History [ Tablet] 1 Ferrous Sulfate [Feosol 325 MG tab] 325 mg PO BID #60 tablet 08/05/13 Unknown Rx Ibuprofen [Motrin] 800 mg PO Q8H PRN #30 tablet 08/05/13 Unknown Rx Mfc476/Iron Fum/Folic/Docusate 1 each PO QDAY #30 tablet 08/05/13 Unknown Rx [ 19 Tablet] Acetaminophen [Acetaminophen 8 650 mg PO TID #40 tablet.er 07/05/16 Unknown Rx Hour] Butalbit/Acetamin/Caff/Codeine 1 each PO Q8H PRN #20 capsule 06/07/17 Unknown Rx [Cyyosb-Zihhatnsdmx-Izql-Codein] Amoxicillin [Trimox CAP] 500 mg PO Q8H #30 capsule 06/19/19 Unknown Rx Butalb/Acetamin/Caff 50-325-40 1 - 2 tab PO Q6HR PRN #15 tab 06/19/19 Unknown Rx [Fioricet 50-325-40] Cetirizine HCl [Zyrtec 10mg tab] 10 mg PO DAILY #30 tablet 06/19/19 Unknown Rx Ketorolac [Toradol] 10 mg PO Q8H PRN #20 tablet 06/19/19 Unknown Rx ED Physical Exam - General Limitations: No Limitations General appearance: alert, in no apparent distress - Head Head exam: Present: atraumatic, normocephalic - Eye Eye exam: Present: normal appearance - ENT ENT exam: Present: mucous membranes moist - Respiratory Respiratory exam: Present: normal lung sounds bilaterally. Absent: respiratory distress, wheezes, rales, rhonchi, stridor, chest wall tenderness, accessory muscle use, decreased breath sounds, prolonged expiratory - Cardiovascular Cardiovascular Exam: Present: regular rate, normal rhythm, normal heart sounds. Absent: systolic murmur, diastolic murmur, rubs, gallop - GI/Abdominal GI/Abdominal exam: Present: soft, normal bowel sounds. Absent: distended, tenderness, guarding, rebound, rigid - Neurological Exam Neurological exam: Present: alert, oriented X3 - Psychiatric Psychiatric exam: Present: normal affect, normal mood - Skin Skin exam: Present: warm, dry, intact ED Course Vital Signs 02/18/20 10:39 Temperature 98.9 F Pulse Rate 97 H Respiratory 18 Rate Blood Pressure 144/88 [Right] O2 Sat by Pulse 98 Oximetry ED Medical Decision Making - Medical Decision Making Patient is a 35-year-old female who presents emergency room with complaints of no menstrual cycle since November. She states that she thought she may be but reports that she took at home test which she states were negative. She states that she has been having pelvic pain for a few weeks. She states she had a tubal ligation in 2017. She states that she has not seen a PSYCHOMETRIST in 3 years. She states that she typically has regular menstrual cycles. She is not any control. She denies any vomiting, diarrhea, dysuria, urinary frequency, vaginal discharge, vaginal itching or burning. She denies any past medical history. No allergies to medications. vitals are normal. No abdominal tenderness on exam, no guarding, no rebound, no rigidity, normal bowel sounds, no peritoneal signs. Patient given Toradol IM while in the emergency department and symptoms improved. UA is within normal limits. Urine is negative. Pelvic ultrasound ordered to rule out pelvic pathology. 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 The patient exhibits decision-making capacity. The patient is free from distracting injury. The risk of leaving without a complete medical examination, and AGAINST MEDICAL ADVICE, were explained to the patient by the dispatcher refinery, and they included , disability, paralysis, permanent loss of quality of life. Patient verbalized understanding to these and was able to articulate these risk in their own words to rakesh Richardson. - Differential Diagnosis UTI, fibroids, adenomyosis, ovarian cyst, PCOS, endometriosis Critical care attestation.: If time is entered above; I have spent that time in minutes in the direct care of this critically ill patient, excluding procedure time. ED Disposition Clinical Impression: Pelvic pain, Missed menses Disposition: DC-07 LEFT AGAINST MED ADVICE Is pt being admited?: No Does the pt Need Aspirin: No Condition: Undetermined Instructions: Abdominal Pain (ED) Referrals: SHAHAB WAYNE MD [Primary Care Provider] - 3-5 Days Forms: AMA Form
== END 2020-02-18 16:59 | disposition left against medical advice (07) ==
LOC: ED 10:21
DX: N92.6 Irregular menstruation, unspecified (principal); R10.2 Pelvic and perineal pain; G43.909 Migraine, unspecified, not intractable, without status migrainosus; J45.909 Unspecified asthma, uncomplicated; F17.200 Nicotine dependence, unspecified, uncomplicated; F12.90 Cannabis use, unspecified, uncomplicated; Z79.899 Other long term (current) drug therapy; Z91.013 Allergy to seafood; Z98.890 Other specified postprocedural states; Z98.51 Tubal ligation status
CPT/HCPCS: 81001; 81025; 96372; 99283; J1885